=== PATIENT | female | born 1935 | race Caucasian/White ===

== ENCOUNTER 2017-05-13 12:50 | Emergency (ER) | payer MEDICARE, OTHER ==
[2017-05-13] MEDS: KETOROLAC 30 MG INJ IM (14:26)
== END 2017-05-13 17:10 | disposition home or self-care (01) ==
LOC: FTE 12:50
DX: M25.462 Effusion, left knee (principal); I10 Essential (primary) hypertension; Z79.82 Long term (current) use of aspirin; Z79.84 Long term (current) use of oral hypoglycemic drugs; Z79.4 Long term (current) use of insulin
CPT/HCPCS: 73560; 96372; 99284-25

== ENCOUNTER 2018-02-22 17:49 | Inpatient (IN) | payer MEDICARE, OTHER ==
[2018-02-22 18:33] LABS: ADD MAN DIFF? NO
[2018-02-22 18:36] LABS: WHITE BLOOD COUNT 6.5 10^3/ul (4.8-10.8)
[2018-02-22 18:36] LABS: BASOPHILS % 0.6 % (0.0-2.0); EOSINOPHILS # 0.1 10^3/ul (0.0-0.5); EOSINOPHILS % 2.1 % (0.0-7.0); HEMATOCRIT 35.5 % (37.0-47.0); HEMOGLOBIN 11.2 g/dl (12.0-16.0); LYMPHOCYTES # 1.2 10^3/ul (0.8-2.9); LYMPHOCYTES % 18.7 % (15.0-51.0); MEAN CORPUSCULAR HEMOGLOBIN 25.1 pg (29.0-33.0); MEAN CORPUSCULAR HGB CONC 31.5 g/dl (32.0-37.0); MEAN CORPUSCULAR VOLUME 79.4 fl (82.0-101.0); MONOCYTE # 0.6 10^3/ul (0.3-0.9); MONOCYTES % 9.8 % (0.0-11.0); NEUTROPHIL # 4.5 10^3/ul (1.6-7.5); NEUTROPHILS % 68.6 % (39.0-77.0); PLATELET COUNT 103 10^3/UL (140-415); RED BLOOD COUNT 4.47 10^6/ul (4.20-5.40); RED CELL DISTRIBUTION WIDTH 16.3 % (11.5-14.5)
[2018-02-22 18:51] LABS: ALANINE AMINOTRANSFERASE 31 IU/L (13-69); ALBUMIN 3.7 g/dl (3.3-4.9); ALKALINE PHOSPHATASE 237 IU/L (42-121); ASPARTATE AMINO TRANSFERASE 36 IU/L (15-46); BILIRUBIN,INDIRECT 0.4 mg/dl (0-1.1); BILIRUBIN,TOTAL 0.4 mg/dl (0.2-1.3); BLOOD UREA NITROGEN 25 mg/dl (7-20); CARBON DIOXIDE 28 mmol/L (21-31); CREATININE 0.84 mg/dl (0.44-1.00); GLUCOSE 124 mg/dl (70-220); LIPASE 112 U/L (23-300); POTASSIUM 3.5 mmol/L (3.5-5.1); SODIUM 139 mmol/L (135-144); TOTAL PROTEIN 7.4 g/dl (6.1-8.1)
[2018-02-22] MEDS: SOD CHLORIDE 0.9% 1,000 ML IV (18:57)
[2018-02-22 19:08] LABS: ANION GAP 12 (5-13); CHLORIDE 99 mmol/L (97-110)
[2018-02-22 19:19] LABS: ADD UMIC YES; UR ASCORBIC ACID NEGATIVE (NEGATIVE); UR BACTERIA FEW /HPF (NONE SEEN); UR BILIRUBIN (Dip) NEGATIVE (NEGATIVE); UR BLOOD (Dip) NEGATIVE (NEGATIVE); UR CLARITY SLIGHTLY CLOUDY (CLEAR); UR COLOR YELLOW (YELLOW); UR GLUCOSE (Dip) NEGATIVE (NEGATIVE); UR KETONES (Dip) NEGATIVE (NEGATIVE); UR LEUKOCYTE ESTERASE (Dip) 2+ Leu/ul (NEGATIVE); UR NITRITE (Dip) NEGATIVE (NEGATIVE); UR RBC 0 /HPF (0-5); UR SPECIFIC GRAVITY (Dip) 1.012 (1.003-1.030); UR TOTAL PROTEIN (Dip) NEGATIVE (NEGATIVE); UR UROBILINOGEN (Dip) NEGATIVE (NEGATIVE); UR WBC 3 /HPF (0-5)
[2018-02-22 19:24] LABS: TROPONIN-I < 0.012 ng/ml (0.000-0.120)
[2018-02-22] MEDS: CEFTRIAXONE 1 GM/50 ML (PMX) 50 ML IVPB (20:09)
[2018-02-23] MEDS ORDERED: traMADol 50 MG TAB PO (02:00)
[2018-02-23] MEDS ORDERED: PENDING SANTYL ORDER FOR WOUND CARE XX (02:30)
[2018-02-23] MEDS: NS + KCL 20 MEQ 1,000 ML IV (02:32)
[2018-02-23] MEDS: LEVOFLOXACIN 250 MG TAB PO (05:49)
[2018-02-23] MEDS: LEVOTHYROXINE 25 MCG TAB PO (05:49)
[2018-02-23] MEDS: PANTOPRAZOLE (EC) 40 MG TAB PO ×2 (05:49→17:24)
[2018-02-23] MEDS: FUROSEMIDE 20 MG TAB PO (05:52)
[2018-02-23] MEDS: traMADol 50 MG TAB PO ×4 (05:53→23:49)
[2018-02-23] MEDS ORDERED: NON-FORMULARY/PATIENT OWN MED (Tramadol HCl 50 MG) PO (06:00)
[2018-02-23 06:47] LABS: ADD MAN DIFF? NO
[2018-02-23 06:56] LABS: WHITE BLOOD COUNT 4.9 10^3/ul (4.8-10.8)
[2018-02-23 06:56] LABS: ABNORMAL IP MESSAGE 1; BASOPHILS % 0.8 % (0.0-2.0); EOSINOPHILS # 0.2 10^3/ul (0.0-0.5); EOSINOPHILS % 4.1 % (0.0-7.0); HEMATOCRIT 34.6 % (37.0-47.0); HEMOGLOBIN 10.7 g/dl (12.0-16.0); LYMPHOCYTES # 1.4 10^3/ul (0.8-2.9); MEAN CORPUSCULAR HEMOGLOBIN 24.9 pg (29.0-33.0); MEAN CORPUSCULAR HGB CONC 30.9 g/dl (32.0-37.0); MEAN CORPUSCULAR VOLUME 80.7 fl (82.0-101.0); MEAN PLATELET VOLUME 12.2 fl (7.4-10.4); MONOCYTE # 0.5 10^3/ul (0.3-0.9); MONOCYTES % 10.8 % (0.0-11.0); NEUTROPHIL # 2.8 10^3/ul (1.6-7.5); NEUTROPHILS % 55.9 % (39.0-77.0); PLATELET COUNT 99 10^3/UL (140-415); RED BLOOD COUNT 4.29 10^6/ul (4.20-5.40); RED CELL DISTRIBUTION WIDTH 16.3 % (11.5-14.5)
[2018-02-23 06:59] LABS: POSITIVE DIFF @See below
[2018-02-23 07:22] LABS: ANION GAP 5 (5-13); BLOOD UREA NITROGEN 20 mg/dl (7-20); CALCIUM 8.7 mg/dl (8.4-10.2); CARBON DIOXIDE 33 mmol/L (21-31); CHLORIDE 102 mmol/L (97-110); CHOL/HDL RATIO 1.5 RATIO; CHOLESTEROL 90 mg/dl (100-200); CREATININE 0.66 mg/dl (0.44-1.00); GLUCOSE 101 mg/dl (70-220); HDL CHOLESTEROL 60 mg/dl (33-92); LDL CHOLESTEROL,CALCULATED 16 mg/dl; POTASSIUM 3.4 mmol/L (3.5-5.1); SODIUM 140 mmol/L (135-144); TRIGLYCERIDES 68 mg/dl (0-149)
[2018-02-23] MEDS: glipiZIDE 5 MG TAB PO (07:30)
[2018-02-23] MEDS: ACCU-CHEK XX ×4 (07:30→21:00)
[2018-02-23] MEDS ORDERED: ACCU-CHEK XX (07:30)
[2018-02-23 07:39] LABS: FREE T4 (FREE THYROXINE) 0.95 ng/dl (0.85-1.93)
[2018-02-23] MEDS: metFORMIN 500 MG TAB PO ×2 (07:53→17:24)
[2018-02-23] MEDS: FOLIC ACID 1 MG TAB PO (08:49)
[2018-02-23] MEDS: ASPIRIN (EC) 325 MG TAB PO (08:49)
[2018-02-23] MEDS: PREGABALIN 25 MG CAP PO ×2 (08:49→23:00)
[2018-02-23] MEDS: HYDROCHLOROTHIAZIDE 12.5 MG CAP PO (08:49)
[2018-02-23] MEDS: RANITIDINE 150 MG TAB PO ×2 (08:49→23:00)
[2018-02-23] MEDS: LOSARTAN 50 MG TAB PO (08:50)
[2018-02-23] MEDS ORDERED: NON-FORMULARY/PATIENT OWN MED (Losartan-Hydrochlorothiazide (Losartan-HCTZ) 1 TAB) PO (09:00)
[2018-02-23] MEDS ORDERED: [UNRECOGNIZED DRUG - OTHER] SQ (09:00)
[2018-02-23] MEDS ORDERED: ASPIRIN 325 MG PO (09:00)
[2018-02-23] MEDS ORDERED: INSULIN GLARGINE HUM REC ANLOG 10 UNIT SQ (09:00)
[2018-02-23] MEDS: INSULIN ASPART [NOVOLOG] 3 ML PEN SC ×3 (12:00→21:00)
[2018-02-23] MEDS ORDERED: DEXTROSE 50% 50 ML SYRINGE IV ×2 (12:30)
[2018-02-23] MEDS ORDERED: GLUCOSE GEL 15 GRAM TUBE PO ×2 (12:30)
[2018-02-23] MEDS ORDERED: GLUCAGON 1 MG INJ IM (12:30)
[2018-02-23] MEDS ORDERED: GLUCOSE GEL 15 GRAM TUBE BUCCAL (12:30)
[2018-02-23] MEDS: ATORVASTATIN 20 MG TAB PO (23:01)
[2018-02-24] MEDS: ACCU-CHEK XX ×5 (02:00→21:00)
[2018-02-24] MEDS: traMADol 50 MG TAB PO ×3 (06:22→17:15)
[2018-02-24] MEDS: PANTOPRAZOLE (EC) 40 MG TAB PO ×2 (06:22→17:15)
[2018-02-24] MEDS: FUROSEMIDE 20 MG TAB PO (06:22)
[2018-02-24] MEDS: LEVOTHYROXINE 25 MCG TAB PO (06:22)
[2018-02-24] MEDS: INSULIN ASPART [NOVOLOG] 3 ML PEN SC ×4 (08:00→20:39)
[2018-02-24] MEDS: metFORMIN 500 MG TAB PO ×2 (08:59→17:16)
[2018-02-24] MEDS: INSULIN GLARGINE [LANTus] (100 UNITS/ML) SYG SC (09:00)
[2018-02-24] MEDS: PREGABALIN 25 MG CAP PO ×2 (09:01→20:39)
[2018-02-24] MEDS: FOLIC ACID 1 MG TAB PO (09:01)
[2018-02-24] MEDS: HYDROCHLOROTHIAZIDE 12.5 MG CAP PO (09:01)
[2018-02-24] MEDS: LOSARTAN 50 MG TAB PO (09:01)
[2018-02-24] MEDS: RANITIDINE 150 MG TAB PO ×2 (09:02→21:50)
[2018-02-24] MEDS: CEFTRIAXONE 1 GM/50 ML (PMX) 50 ML IVPB (17:10)
[2018-02-24] MEDS: ATORVASTATIN 20 MG TAB PO (20:39)
[2018-02-25] MEDS: traMADol 50 MG TAB PO ×4 (00:06→18:46)
[2018-02-25] MEDS: ACCU-CHEK XX ×5 (01:31→20:56)
[2018-02-25] MEDS: PANTOPRAZOLE (EC) 40 MG TAB PO ×2 (06:00→18:46)
[2018-02-25] MEDS: FUROSEMIDE 20 MG TAB PO (06:00)
[2018-02-25] MEDS: LEVOTHYROXINE 25 MCG TAB PO (06:00)
[2018-02-25] MEDS: INSULIN ASPART [NOVOLOG] 3 ML PEN SC ×4 (08:00→20:53)
[2018-02-25] MEDS: metFORMIN 500 MG TAB PO ×2 (09:24→18:46)
[2018-02-25] MEDS: INSULIN GLARGINE [LANTus] (100 UNITS/ML) SYG SC (09:25)
[2018-02-25] MEDS: FOLIC ACID 1 MG TAB PO (09:26)
[2018-02-25] MEDS: LOSARTAN 50 MG TAB PO (09:26)
[2018-02-25] MEDS: RANITIDINE 150 MG TAB PO ×2 (09:27→20:53)
[2018-02-25] MEDS: HYDROCHLOROTHIAZIDE 12.5 MG CAP PO (09:27)
[2018-02-25] MEDS: PREGABALIN 25 MG CAP PO ×2 (09:27→20:53)
[2018-02-25] MEDS: ERTAPENEM SODIUM 1 GM in SOD CHLORIDE 0.9% 100 ML IVPB (12:32)
[2018-02-25] MEDS ORDERED: MEROPENEM 1 GM/50ML(PMX) 50 ML IVPB (14:00)
[2018-02-25] MEDS: ATORVASTATIN 20 MG TAB PO (20:53)
[2018-02-25] MEDS: POLYETHYLENE GLYCOL 17 GM PACKET PO (21:21)
[2018-02-25] MEDS: DOCUSATE SODIUM 100 MG CAP PO (21:21)
[2018-02-26] MEDS: traMADol 50 MG TAB PO ×4 (00:33→18:10)
[2018-02-26] MEDS: ACCU-CHEK XX ×4 (01:15→17:21)
[2018-02-26] MEDS: LEVOTHYROXINE 25 MCG TAB PO (05:59)
[2018-02-26] MEDS: PANTOPRAZOLE (EC) 40 MG TAB PO ×2 (06:00→17:23)
[2018-02-26] MEDS: FUROSEMIDE 20 MG TAB PO (06:00)
[2018-02-26] MEDS: INSULIN ASPART [NOVOLOG] 3 ML PEN SC ×3 (08:00→17:22)
[2018-02-26] MEDS: INSULIN GLARGINE [LANTus] (100 UNITS/ML) SYG SC (08:34)
[2018-02-26] MEDS: RANITIDINE 150 MG TAB PO (08:35)
[2018-02-26] MEDS: DOCUSATE SODIUM 100 MG CAP PO (08:35)
[2018-02-26] MEDS: LOSARTAN 50 MG TAB PO (08:35)
[2018-02-26] MEDS: PREGABALIN 25 MG CAP PO (08:35)
[2018-02-26] MEDS: metFORMIN 500 MG TAB PO ×2 (08:35→17:23)
[2018-02-26] MEDS: POLYETHYLENE GLYCOL 17 GM PACKET PO (08:36)
[2018-02-26] MEDS: HYDROCHLOROTHIAZIDE 12.5 MG CAP PO (08:36)
[2018-02-26] MEDS: FOLIC ACID 1 MG TAB PO (08:36)
[2018-02-26 11:15] LABS: ADD MAN DIFF? NO
[2018-02-26 11:17] LABS: ABNORMAL IP MESSAGE 1; BASOPHIL # 0.1 10^3/ul (0.0-0.1); EOSINOPHILS # 0.2 10^3/ul (0.0-0.5); EOSINOPHILS % 3.6 % (0.0-7.0); HEMATOCRIT 37.1 % (37.0-47.0); HEMOGLOBIN 11.7 g/dl (12.0-16.0); MEAN CORPUSCULAR HEMOGLOBIN 25.2 pg (29.0-33.0); MEAN CORPUSCULAR HGB CONC 31.5 g/dl (32.0-37.0); MEAN CORPUSCULAR VOLUME 79.8 fl (82.0-101.0); MEAN PLATELET VOLUME 11.6 fl (7.4-10.4); MONOCYTE # 0.5 10^3/ul (0.3-0.9); MONOCYTES % 8.8 % (0.0-11.0); NEUTROPHIL # 3.5 10^3/ul (1.6-7.5); NEUTROPHILS % 66.2 % (39.0-77.0); PLATELET COUNT 98 10^3/UL (140-415); RED BLOOD COUNT 4.65 10^6/ul (4.20-5.40); RED CELL DISTRIBUTION WIDTH 16.8 % (11.5-14.5)
[2018-02-26 11:17] LABS: WHITE BLOOD COUNT 5.2 10^3/ul (4.8-10.8)
[2018-02-26 11:19] LABS: POSITIVE DIFF @See below
[2018-02-26] MEDS: ERTAPENEM SODIUM 1 GM in SOD CHLORIDE 0.9% 100 ML IVPB (11:41)
[2018-02-26 11:43] LABS: ANISOCYTOSIS 2+ (0-0); BAND NEUTROPHILS % (M) 1 % (0-4); BASOPHILS % (M) 1 % (0-2); EOSINOPHILS % (M) 2 % (0-7); LYMPHOCYTES #M 0.7 10^3/ul (0.8-2.9); LYMPHOCYTES % (M) 14 % (15-51); MICROCYTOSIS 2+ (0-0); MONOCYTE #M 0.2 10^3/ul (0.3-0.9); MONOCYTES % (M) 5 % (0-11); MYELOCYTES % (M) 1 % (0-0); PLATELET ESTIMATE DECREASED; POIKILOCYTOSIS 1+ (0-0); POLYCHROMASIA 3+ (0-0); REACTIVE LYMPHOCYTES #M 0.3 10^3/ul (0.0-0.0); REACTIVE LYMPHOCYTES% (M) 6 % (0-0); SEG NEUT #M 3.6 10^3/ul (1.6-7.5); SEGMENTED NEUTROPHILS (M) % 70 % (39-77); SMUDGE%M 6 % (0-0)
[2018-02-26 11:58] LABS: ANION GAP 13 (5-13); BLOOD UREA NITROGEN 24 mg/dl (7-20); CALCIUM 8.5 mg/dl (8.4-10.2); CARBON DIOXIDE 25 mmol/L (21-31); CHLORIDE 97 mmol/L (97-110); CREATININE 0.67 mg/dl (0.44-1.00); GLUCOSE 160 mg/dl (70-220); MAGNESIUM 1.8 mg/dl (1.7-2.5); POTASSIUM 3.6 mmol/L (3.5-5.1); SODIUM 135 mmol/L (135-144)
[2018-02-26] MEDS: POTASSIUM CHLORIDE (SR) 20 MEQ TAB PO (14:31)
[2018-02-27] MEDS ORDERED: LOSARTAN 50 MG TAB PO (09:00)
== END 2018-02-26 18:45 | DRG 690 ==
LOC: E/R 17:49 → PP2 23:15
DX: N39.0 Urinary tract infection, site not specified (principal); I10 Essential (primary) hypertension; E03.9 Hypothyroidism, unspecified; E11.9 Type 2 diabetes mellitus without complications; F03.90 Unspecified dementia, unspecified severity, without behavioral disturbance, psychotic disturbance, mood disturbance, and anxiety; W19.XXXA Unspecified fall, initial encounter; Z91.81 History of falling
CPT/HCPCS: 36415; 70450; 71045; 72170; 80048; 80053; 80061; 81001; 82962; 83690; 83735; 84439; 84443; 84484; 85025; 87086; 90686; 93005; 97162; 99285-25